=== PATIENT | male | born 1985 | race Hispanic/Latino ===

== ENCOUNTER 2021-12-16 09:41 | Emergency (ER) | payer SELFPAY ==
--- NOTE | 2021-12-16 11:28 | Emergency Department Report ---
History of Present Illness - General Chief Complaint: Overdose Stated Complaint: drugs Time Seen by Provider: 12/16/21 11:20 Source: patient, EMS Mode of arrival: Stretcher Limitations: No Limitations - History of Present Illness Initial Comments: Patient is 36 years old male with history of substance abuse. Patient brought to the emergency room via EMS after patient was found unresponsive. Patient received 4 mg of Narcan by EMS. Patient now is awake alert and oriented x3 and able to provide information. Patient stated that he took methamphetamine and Xanax. He denied any suicidal ideation or suicidal attempt. He also denied any depression, visual or auditory hallucination. Complaint: accidental overdose -: This morning Intent: unwilling to say How Overdose Was Discovered: called 911 Context: Accidental Overdose: wanted to get high Treatments Prior to Arrival: narcan - Related Data Allergies Allergy/AdvReac Type Severity Reaction Status Date / Time No Known Allergies Allergy Unverified 12/16/21 09:53 ED Review of Systems ROS: Stated complaint: drugs Other details as noted in HPI Comment: All other systems reviewed and negative Constitutional: denies: chills, fever Respiratory: denies: cough, shortness of breath, SOB with exertion, SOB at rest Cardiovascular: palpitations. denies: chest pain Gastrointestinal: denies: abdominal pain, nausea, vomiting, diarrhea, constipation, hematemesis, melena Musculoskeletal: denies: back pain Neurological: denies: headache, weakness, numbness, paresthesias, confusion, ab normal gait, vertigo Psychiatric: denies: depression, auditory hallucinations, visual hallucinations, homicidal thoughts, suicidal thoughts ED Physical Exam - General Limitations: No Limitations General appearance: alert, in no apparent distress - Head Head exam: Present: atraumatic, normocephalic, normal inspection - Eye Eye exam: Present: normal appearance - ENT ENT exam: Present: normal exam, normal orophraynx, mucous membranes moist - Neck Neck exam: Present: normal inspection, full ROM. Absent: tenderness, meningismu s - Respiratory Respiratory exam: Present: normal lung sounds bilaterally - Cardiovascular Cardiovascular Exam: Present: regular rate, normal rhythm, normal heart sounds - GI/Abdominal GI/Abdominal exam: Present: soft, normal bowel sounds. Absent: distended, tenderness, guarding, rebound, rigid, organomegaly, mass, bruit, pulsatile mass, hernia - Extremities Exam Extremities exam: Present: normal inspection, full ROM, normal capillary refill. Absent: tenderness - Back Exam Back exam: Present: normal inspection, full ROM. Absent: CVA tenderness (R), CVA tenderness (L) - Neurological Exam Neurological exam: Present: alert, oriented X3, CN II-XII intact, normal gait, reflexes normal. Absent: motor sensory deficit - Psychiatric Psychiatric exam: Present: normal mood. Absent: anxious, flat affect, manic, homicidal ideation, suicidal ideation - Skin Skin exam: Present: warm, intact, normal color ED Course Vital Signs 12/16/21 12/16/21 09:51 12:43 Temperature 98.5 F 97.8 F Pulse Rate 116 H 86 Respiratory 18 16 Rate Blood Pressure 156/90 142/86 [Right] O2 Sat by Pulse 98 99 Oximetry ED Medical Decision Making - Lab Data Result diagrams: 12/16/21 10:45 12/16/21 10:45 - Medical Decision Making Patient is 36 years old male with history of substance abuse. Patient brought to the emergency room via EMS after patient was found unresponsive. Patient received 4 mg of Narcan by EMS. Patient now is awake alert and oriented x3 and able to provide information. Patient stated that he took methamphetamine and Xanax. He denied any suicidal ideation or suicidal attempt. He also denied any depression, visual or auditory hallucination. Labs reviewed and is unremarkable except for positive methamphetamine. Patient remained alert, oriented x3 in no acute distress. Patient observed in the ER for approximately 5 hours after the last Narcan. Patient counseled about drug abuse. Patient advised to follow-up with his primary care physician in the next 2 to 3 days and to return to the ER if he develop any new symptoms. Critical care attestation.: If time is entered above; I have spent that time in minutes in the direct care of this critically ill patient, excluding procedure time. ED Disposition Clinical Impression: Accidental drug overdose, Methamphetamine abuse Disposition: HOME / SELF CARE / HOMELESS Is pt being admited?: No Condition: Stable Instructions: Amphetamines Use Disorder Referrals: PRIMARY CARE, [Referring] - 3-5 Days
[2021-12-16 12:31] LABS: Basophils % (Auto) 0.4 % (0.0-1.8); Eosinophils # (Auto) 0.1 K/mm3 (0.0-0.4); Eosinophils % (Auto) 0.5 % (0.0-4.3); Hematocrit 40.6 % (35.5-45.6); Hemoglobin 13.3 gm/dl (11.8-15.2); Lymphocytes # (Auto) 1.4 K/mm3 (1.2-5.4); Lymphocytes % (Auto) 12.9 % (13.4-35.0); Mean Corpuscular HGB Conc 33 % (32-34); Mean Corpuscular Volume 90 fl (84-94); Monocytes # (Auto) 0.9 K/mm3 (0.0-0.8); Monocytes % (Auto) 8.2 % (0.0-7.3); Platelet Count 268 K/mm3 (140-440); Red Blood Count 4.52 M/mm3 (3.65-5.03); Red Cell Distribution Width 13.8 % (13.2-15.2)
[2021-12-16 12:44] VITALS: BP 142/86
[2021-12-16 12:45] LABS: Benzodiazepines Screen,Urine Negative; Cannabinoid Screen,Urine Negative; Cocaine Screen,Urine Negative; Methadone Screen,Urine Negative; Opiate Screen,Urine Negative
[2021-12-16 12:55] LABS: Bilirubin,Urine NEG (Negative); Blood,Urine NEG (Negative); Color,Urine Straw (Yellow); Protein,Urine <15 mg/dL mg/dL (Negative); Urobilinogen,Urine < 2.0 mg/dL (<2.0); WBC,Urine < 1.0 /HPF (0.0-6.0)
[2021-12-16 13:02] LABS: Amphetamine Screen,Urine Positive
[2021-12-16 13:38] LABS: BUN/Creatinine Ratio 12; Blood Urea Nitrogen 16 mg/dL (9-20); Calcium 9.5 mg/dL (8.4-10.2); Hemolysis Index 50
--- NOTE | 2021-12-18 18:48 | Electrocardiograph Report ---
[facility] Test Date: 2021-12-16 Test Time: 10:11:12 Pat Name: CRUZ HERBERT Department: Room: Gender: Muffler Hand: ROMERO : 1985 Requested By: CHANTELLE BURR Order Number: [id number] Reading MD: Ethan Rodriguez Measurements Intervals [place] Rate: 102 P: 73 HI: 131 QRS: 75 QRSD: 98 T: 53 QT: 337 QTc: 438 Interpretive Statements Sinus tachycardia No previous ECG available for comparison Electronically Signed On 12-18-2021 18:47:31 EDT by Ethan Rodriguez
== END 2021-12-16 14:04 | disposition home or self-care (01) ==
LOC: ED 09:41
DX: T42.4X1A Poisoning by benzodiazepines, accidental (unintentional), initial encounter (principal); Z79.899 Other long term (current) drug therapy; F15.10 Other stimulant abuse, uncomplicated; Y92.89 Other specified places as the place of occurrence of the external cause
CPT/HCPCS: 36415; 80048; 80307; 80320; 81001; 85025; 93005; 99283; G0480

== ENCOUNTER 2022-05-01 03:29 | Emergency (ER) | payer SELFPAY ==
[2022-05-01 03:53] VITALS: BP 130/80
== END 2022-05-01 16:36 | disposition left against medical advice (07) ==
LOC: ED 03:29
DX: R07.89 Other chest pain (principal); R06.02 Shortness of breath; Z53.21 Procedure and treatment not carried out due to patient leaving prior to being seen by health care provider